=== PATIENT | female | born 1990 | race Caucasian/White ===

== ENCOUNTER 2018-10-02 08:36 | Inpatient (IN) | payer BC ==
[2018-10-02] MEDS ORDERED: Carboprost Tromethamine 250 MCG/1 ML Amp IM PRN (09:01)
[2018-10-02] MEDS ORDERED: Methylergonovine 0.2 MG/1 ML Amp IM PRN (09:01)
[2018-10-02] MEDS ORDERED: Nalbuphine 10 MG/1 ML Vial IVPUSH PRN (09:01)
[2018-10-02] MEDS ORDERED: Sodium Chloride 0.9% 2.5 ML Syringe FLUSH PRN (09:01)
[2018-10-02] MEDS ORDERED: Tranexamic Acid 1,000 MG in Sodium Chloride 0.9% 100 ML IV PRN (09:01)
[2018-10-02] MEDS ORDERED: Water For Irrigation,Sterile 1,000 ML Container IRR PRN (09:01)
[2018-10-02] MEDS ORDERED: Sodium Chloride 0.9% 10 ML Syringe FLUSH PRN (09:01)
[2018-10-02] MEDS ORDERED: Lidocaine 1% 50 ML MDV INJECT PRN (09:01)
[2018-10-02] MEDS ORDERED: Misoprostol 200 MCG Tab PO PRN (09:01)
[2018-10-02] MEDS ORDERED: Ondansetron 4 MG/2 ML SDV IV PRN (09:01)
[2018-10-02] MEDS ORDERED: Butorphanol 1 MG/ML SDV IVPUSH PRN (09:01)
[2018-10-02] MEDS ORDERED: Oxytocin/0.9 % Sodium Chloride 30 UNIT/500 ML BAG IV SCH (09:15)
[2018-10-02] MEDS ORDERED: Lactated Ringers 1,000 ML IV SCH (09:15)
[2018-10-02] MEDS ORDERED: Witch Hazel Medicated Pads 40/Jar TOP PRN (09:58)
[2018-10-02] MEDS ORDERED: Bisacodyl 10 MG Supp RECTAL PRN (09:58)
[2018-10-02] MEDS ORDERED: Lanolin 100% Cream 7 GM Tube TOP PRN (09:58)
[2018-10-02] MEDS ORDERED: Docusate Sodium 100 MG Cap PO PRN (09:58)
[2018-10-02] MEDS ORDERED: Ibuprofen 400 MG Tab PO PRN (09:58)
[2018-10-02] MEDS ORDERED: Acetaminophen 500 MG Tab PO PRN ×2 (09:58)
[2018-10-02] MEDS ORDERED: Benzocaine/Menthol 20%-0.5% Spray 78 GM Cannister TOP PRN (09:58)
[2018-10-02] MEDS ORDERED: oxyCODONE 5 MG Tab PO PRN (09:58)
--- NOTE | 2018-10-02 10:02 | PCM.DEL ---
L & D Note - General Info Date of Service: 10/02/18 - Delivery Note Labor: Spontaneous Delivery Outcome: Livebirth Delivery Method: Spontaneous Vaginal Delivery-Single Delivery Mode: Spontaneous Presentation: Right Occiput Posterior (ROP) Nuchal Cord: None Prep: Other Anesthesia Type: Local Amniotic Fluid Description: Clear Episiotomy Type: None Laceration: 2nd Degree, Labial Suture size: 3-0 Placenta: Intact, Spontaneous Cord: 3 Vessels Estimated Blood Loss: 100 Resuscitation Needed: No Score 1 min: 9 Score 5 min: 9 - General Info Date of Service: 10/02/18 - Patient Data Lab Results Last 24 Hours: Laboratory Results - last 24 hr 10/02/18 Range/Units 09:20 WBC 10.44 (4.0-11.0) K/uL RBC 4.25 L (4.30-5.90) M/uL Hgb 13.3 (12.0-16.0) g/dL Hct 39.1 (36.0-46.0) % MCV 92.0 (80.0-98.0) fL MCH 31.3 (27.0-32.0) pg MCHC 34.0 (31.0-37.0) g/dL RDW Std Deviation 45.6 (28.0-62.0) fl RDW Coeff of Saida 14 (11.0-15.0) % Plt Count 171 (150-400) K/uL MPV 10.70 (7.40-12.00) fL Nucleated RBC % 0.0 /100WBC Nucleated RBCs # 0 K/uL Med Orders - Current: Current Medications Discontinued Medications Butorphanol Tartrate (Stadol) 1 mg IVPUSH Q1H PRN PRN Reason: Pain Carboprost Tromethamine (Hemabate Ds) 250 mcg IM ASDIRECTED PRN PRN Reason: Post Hemorrhage Lactated Ringer's (Ringers, Lactated) 1,000 mls @ 150 mls/hr IV ASDIRECTED [facility] Last Admin: 10/02/18 09:25 Dose: 999 mls/hr Oxytocin/Sodium Chloride (Oxytocin 30 Unit/500 Ml-Ns) 30 unit in 500 mls @ 999 mls/hr IV TITRATE [facility] Last Admin: 10/02/18 09:36 Dose: 999 mls/hr Tranexamic Acid 1,000 mg/ (Sodium Chloride) 110 mls @ 660 mls/hr IV ONETIME PRN PRN Reason: Bleeding Lidocaine HCl (Xylocaine 1%) 50 ml INJECT ONETIME PRN PRN Reason: Laceration repair Last Admin: 10/02/18 09:44 Dose: 50 ml Methylergonovine Maleate (Methergine) 0.2 mg IM ASDIRECTED PRN PRN Reason: Post Hemorrhage Misoprostol (Cytotec) 200 mcg PO ONETIME PRN PRN Reason: Post Hemorrhage Nalbuphine HCl (Nubain) 10 mg IVPUSH Q1H PRN PRN Reason: Pain (severe 7-10) Ondansetron HCl (Zofran) 4 mg IV Q4H PRN PRN Reason: Nausea/Vomiting Sodium Chloride (Saline Flush) 10 ml FLUSH ASDIRECTED PRN PRN Reason: Keep Vein Open Sodium Chloride (Saline Flush) 2.5 ml FLUSH ASDIRECTED PRN PRN Reason: Keep Vein Open Sterile Water (Sterile Water For Irrigation) 1,000 ml IRR ASDIRECTED PRN PRN Reason: delivery Last Admin: 10/02/18 09:44 Dose: 1,000 ml - Problem List & Annotations (1) Vaginal delivery SNOMED Code(s): 362347627 Code(s): O80 - ENCOUNTER FOR FULL-TERM UNCOMPLICATED DELIVERY Status: Acute Current Visit: No - Problem List Review Problem List Initiated/Reviewed/Updated: Yes - My Orders Last 24 Hours: My Active Orders 10/02/18 09:02 Heart Tones [RC] CONTINUOUS Non Stress Test [RC] PER UNIT ROUTINE May Shower [RC] ASDIRECTED Notify Provider [RC] PRN Up ad Valeria [RC] ASDIRECTED Vaginal Exam [RC] PRN Vital Signs [RC] PER UNIT ROUTINE 10/02/18 09:20 TYPE AND SCREEN [BBK] Routine 10/02/18 09:36 BLOOD GAS ARTERIAL UMBILICAL [BG] Routine BLOOD GAS VENOUS UMBILICAL [BG] Routine 10/02/18 09:58 Patient Status [ADT] Routine May Shower [RC] ASDIRECTED Up ad Valeria [RC] ASDIRECTED Vital Signs [RC] PER UNIT ROUTINE Acetaminophen [Tylenol Extra Strength] 1,000 mg PO Q4H PRN Acetaminophen [Tylenol Extra Strength] 500 mg PO Q4H PRN Benzocaine/Menthol [Dermoplast Pain Relief 20%-0.5% [place]] 78 gm TOP ASDIRECTED PRN Bisacodyl [Dulcolax] 10 mg RECTAL ONETIME PRN Docusate Sodium [Colace] 100 mg PO BID PRN Ibuprofen [Motrin] 400 mg PO Q4H PRN Ibuprofen [Motrin] 800 mg PO Q6H PRN Lanolin [Lansinoh HPA] See Dose Instructions TOP ASDIRECTED PRN [place] Joy [Tucks] 1 pad TOP ASDIRECTED PRN oxyCODONE 5 mg PO Q2H PRN Assess Lochia [WOMSER] Per Unit Routine Assess Uterine Involution [WOMSER] Per Unit Routine Breast Pump [WOMSER] Per Unit Routine Perineal Care [OM.PC] Per Unit Routine Peripheral IV Discontinue [OM.PC] Routine Resuscitation Status Routine 10/02/18 Lunch Regular Diet [DIET] 10/03/18 05:11 HEMOGLOBIN/HEMATOCRIT,HH [HEME] Timed
[2018-10-02] MEDS: Ibuprofen 800 MG Tab PO PRN ×2 (11:19→17:16)
--- NOTE | 2018-10-02 12:48 | OR ---
SURGEON: Lilly Pope MD DATE OF PROCEDURE: 10/02/2018 PREOPERATIVE DIAGNOSES: 1. Postdate at 40 weeks and 6 days' gestation. 2. Spontaneous labor. POSTOPERATIVE DIAGNOSES: 1. Postdate at 40 weeks and 6 days' gestation. 2. Spontaneous labor. 3. Delivered. PROCEDURE: Spontaneous vaginal delivery with repair of perineal laceration. ANESTHESIA: Local. ESTIMATED BLOOD LOSS: 100 mL. COMPLICATIONS: None. DISPOSITION: Mother and baby stable in Labor and Delivery Room, bonding. FINDINGS: Female . Weight pending. scores of 9 and 9 at 1 minute and 5 minutes respectively. Grossly normal placenta with 3-vessel cord. Left anterior labial laceration and a second-degree perineal laceration. BRIEF HISTORY: The patient is a 27-year-old, G2, P1-0-0-1, who presented this morning at 40 weeks and 6 days' gestation with a history of contractions since midnight. Denied vaginal bleeding or leakage of fluid. care was uncomplicated. GBS negative. On admission, she was found to be in active labor, 7 cm to 8 cm dilated with tense bulging bag. She was admitted and re-examined about 30 minutes later and was found to be fully dilated. Spontaneous rupture of membranes occurred with clear amniotic fluid. The patient was encouraged to commence pushing and was set up for delivery in modified dorsal lithotomy position. heart tracing was category 2 with variable decelerations. DESCRIPTION OF PROCEDURE: She had a spontaneous vaginal delivery of a live female in right occipital posterior position. No nuchal cord. Clear amniotic fluid at delivery. Anterior and posterior shoulders and the rest of the baby were delivered without difficulty. Baby was vigorous and cried spontaneously at and was delivered onto the maternal abdomen with the nursery nurse in attendance stimulating and drying her. A delayed cord clamping was observed, and cord was subsequently cut by the father of the baby. Cord blood and gas samples were obtained. With the delivery of the , oxytocin infusion was commenced, titration for active management of third stage of labor. Cord blood and gas samples were obtained. Placenta was delivered by controlled cord traction and appeared to be complete and intact. Examination of the perineum revealed a left anterior labial laceration and a midline second-degree laceration. These were infiltrated with 1% lidocaine without epinephrine; and once adequate anesthesia was confirmed, they were repaired with 3-0 Vicryl suture, were hemostatic post repair. Uterine massage was performed. Uterus was found to be well contracted below the umbilicus. The patient tolerated the procedure well. Sponge, instrument, and needle counts were correct at the end of the delivery. ROSA / KWESI /[id number] MTDD
[2018-10-03] MEDS: Ibuprofen 800 MG Tab PO PRN (04:07)
--- NOTE | 2018-10-03 08:51 | PCM.PNPP ---
- General Info Date of Service: 10/03/18 Functional Status: Reports: Pain Controlled, Tolerating Diet, Ambulating, Urinating - Review of Systems General: Denies: Fever, Fatigue HEENT: Denies: Headaches Pulmonary: Denies: Shortness of Breath, Pleuritic Chest Pain Cardiovascular: Denies: Chest Pain, Palpitations, Dyspnea on Exertion Gastrointestinal: Denies: Abdominal Pain Genitourinary: Denies: Dysuria, Incontinence, Retention, Flank Pain - General Info Date of Service: 10/03/18 - Patient Data Vital Signs - Most Recent: Last Vital Signs Temp 36.7 C 10/03/18 07:55 Pulse 67 10/03/18 07:55 Resp 16 10/03/18 07:55 BP 113/66 10/03/18 07:55 Pulse Ox 99 10/03/18 07:55 Weight - Most Recent: 175 lb Lab Results - Last 24 Hours: Laboratory Results - last 24 hr 10/02/18 10/02/18 10/02/18 Range/Units 09:20 09:20 09:39 WBC 10.44 (4.0-11.0) K/uL RBC 4.25 L (4.30-5.90) M/uL Hgb 13.3 (12.0-16.0) g/dL Hct 39.1 (36.0-46.0) % MCV 92.0 (80.0-98.0) fL MCH 31.3 (27.0-32.0) pg MCHC 34.0 (31.0-37.0) g/dL RDW Std Deviation 45.6 (28.0-62.0) fl RDW Coeff of Saida 14 (11.0-15.0) % Plt Count 171 (150-400) K/uL MPV 10.70 (7.40-12.00) fL Nucleated RBC % 0.0 /100WBC Nucleated RBCs # 0 K/uL Cord ABG pH 7.256 (7.18-7.38) Cord ABG Base Excess -5 (-10--2) Cord VBG pH 7.356 (7.25-7.45) Cord VBG Base Excess -4 (-10--2) Blood Type A POSITIVE Antibody Screen NEGATIVE 10/03/18 Range/Units 04:40 WBC (4.0-11.0) K/uL RBC (4.30-5.90) M/uL Hgb 12.0 (12.0-16.0) g/dL Hct 36.3 (36.0-46.0) % MCV (80.0-98.0) fL MCH (27.0-32.0) pg MCHC (31.0-37.0) g/dL RDW Std Deviation (28.0-62.0) fl RDW Coeff of Saida (11.0-15.0) % Plt Count (150-400) K/uL MPV (7.40-12.00) fL Nucleated RBC % /100WBC Nucleated RBCs # K/uL Cord ABG pH (7.18-7.38) Cord ABG Base Excess (-10--2) Cord VBG pH (7.25-7.45) Cord VBG Base Excess (-10--2) Blood Type Antibody Screen Med Orders - Current: Current Medications Acetaminophen (Tylenol Extra Strength) 500 mg PO Q4H PRN PRN Reason: Pain Acetaminophen (Tylenol Extra Strength) 1,000 mg PO Q4H PRN PRN Reason: Pain Last Admin: 10/02/18 20:21 Dose: 1,000 mg Benzocaine/Menthol (Dermoplast Pain Relief 20%-0.5% [place]) 78 gm TOP ASDIRECTED PRN PRN Reason: Perineal Comfort Measure Last Admin: 10/02/18 11:40 Dose: 1 spray Bisacodyl (Dulcolax) 10 mg RECTAL ONETIME PRN PRN Reason: Constipation Docusate Sodium (Colace) 100 mg PO BID PRN PRN Reason: Constipation Last Admin: 10/02/18 10:53 Dose: 100 mg Emollient Ointment (Lansinoh Hpa) 0 gm TOP ASDIRECTED PRN PRN Reason: Sore Nipples Ibuprofen (Motrin) 400 mg PO Q4H PRN PRN Reason: Pain Ibuprofen (Motrin) 800 mg PO Q6H PRN PRN Reason: Pain Last Admin: 10/03/18 04:07 Dose: 800 mg Oxycodone HCl (Oxycodone) 5 mg PO Q2H PRN PRN Reason: Pain Witch Joy (Tucks) 1 pad TOP ASDIRECTED PRN PRN Reason: comfort care Last Admin: 10/02/18 11:41 Dose: 1 pad Discontinued Medications Butorphanol Tartrate (Stadol) 1 mg IVPUSH Q1H PRN PRN Reason: Pain Carboprost Tromethamine (Hemabate Ds) 250 mcg IM ASDIRECTED PRN PRN Reason: Post Hemorrhage Lactated Ringer's (Ringers, Lactated) 1,000 mls @ 150 mls/hr IV ASDIRECTED [facility] Last Admin: 10/02/18 09:25 Dose: 999 mls/hr Oxytocin/Sodium Chloride (Oxytocin 30 Unit/500 Ml-Ns) 30 unit in 500 mls @ 999 mls/hr IV TITRATE [facility] Last Admin: 10/02/18 09:36 Dose: 999 mls/hr Tranexamic Acid 1,000 mg/ (Sodium Chloride) 110 mls @ 660 mls/hr IV ONETIME PRN PRN Reason: Bleeding Lidocaine HCl (Xylocaine 1%) 50 ml INJECT ONETIME PRN PRN Reason: Laceration repair Last Admin: 10/02/18 09:44 Dose: 50 ml Methylergonovine Maleate (Methergine) 0.2 mg IM ASDIRECTED PRN PRN Reason: Post Hemorrhage Misoprostol (Cytotec) 200 mcg PO ONETIME PRN PRN Reason: Post Hemorrhage Nalbuphine HCl (Nubain) 10 mg IVPUSH Q1H PRN PRN Reason: Pain (severe 7-10) Ondansetron HCl (Zofran) 4 mg IV Q4H PRN PRN Reason: Nausea/Vomiting Sodium Chloride (Saline Flush) 10 ml FLUSH ASDIRECTED PRN PRN Reason: Keep Vein Open Sodium Chloride (Saline Flush) 2.5 ml FLUSH ASDIRECTED PRN PRN Reason: Keep Vein Open Sterile Water (Sterile Water For Irrigation) 1,000 ml IRR ASDIRECTED PRN PRN Reason: delivery Last Admin: 10/02/18 09:44 Dose: 1,000 ml - Infant Interaction Disposition, : [place] in Room with Family Feeding: Breastfed ; Nursed Well, Continues to Breastfeed Support Person: - Recovery Exam Fundal Tone: Firm Fundal Level: 1 Fingerbreadths Below Umbilicus Fundal Placement: Midline Lochia Amount: Scant Lochia Color: Rubra/Red Perineum Description: Other (see below) Other Perinuem Description: 2nd degree labial tear Episiotomy/Laceration: Approximated Bladder Status: Voiding - Exam General: Alert, Oriented Lungs: Clear to Auscultation, Normal Respiratory Effort Cardiovascular: Regular Rate, Regular Rhythm GI/Abdominal Exam: Normal Bowel Sounds, Soft Extremities: Non-Tender, Pedal Edema Skin: Warm Psy/Mental Status: Alert, Normal Affect, Normal Mood - Problem List & Annotations (1) Vaginal delivery SNOMED Code(s): 957153666 Code(s): O80 - ENCOUNTER FOR FULL-TERM UNCOMPLICATED DELIVERY Status: Acute Current Visit: No - Problem List Review Problem List Initiated/Reviewed/Updated: Yes - My Orders Last 24 Hours: My Active Orders 10/02/18 09:02 Heart Tones [RC] CONTINUOUS Non Stress Test [RC] PER UNIT ROUTINE May Shower [RC] ASDIRECTED Notify Provider [RC] PRN Up ad Valeria [RC] ASDIRECTED Vaginal Exam [RC] PRN Vital Signs [RC] PER UNIT ROUTINE 10/02/18 09:58 Patient Status [ADT] Routine May Shower [RC] ASDIRECTED Vital Signs [RC] PER UNIT ROUTINE Acetaminophen [Tylenol Extra Strength] 1,000 mg PO Q4H PRN Acetaminophen [Tylenol Extra Strength] 500 mg PO Q4H PRN Benzocaine/Menthol [Dermoplast Pain Relief 20%-0.5% [place]] 78 gm TOP ASDIRECTED PRN Bisacodyl [Dulcolax] 10 mg RECTAL ONETIME PRN Docusate Sodium [Colace] 100 mg PO BID PRN Ibuprofen [Motrin] 400 mg PO Q4H PRN Ibuprofen [Motrin] 800 mg PO Q6H PRN Lanolin [Lansinoh HPA] See Dose Instructions TOP ASDIRECTED PRN Witch Joy [Tucks] 1 pad TOP ASDIRECTED PRN oxyCODONE 5 mg PO Q2H PRN Assess Lochia [WOMSER] Per Unit Routine Assess Uterine Involution [WOMSER] Per Unit Routine Breast Pump [WOMSER] Per Unit Routine Perineal Care [OM.PC] Per Unit Routine Peripheral IV Discontinue [OM.PC] Routine Resuscitation Status Routine 10/02/18 Lunch Regular Diet [DIET] - Assessment Assessment:: PPD#1 s/p , stable and afebrile Clinically stable for discharge - Plan Plan:: Discharge instructions reviewed Nothing in the vagina for 6 weeks Bleeding and infection precautions reviewed Continue PNV depression S/S reviewed, encouraged to call with any concerns Follow up in 6 weeks
[2018-10-03 10:50] VITALS: BP 113/66
== END 2018-10-03 13:00 | disposition home or self-care (01) | DRG 560 ==
LOC: MW.OBCHECK 08:36 → MW.OB 08:37 → OBSVTOIN 09:35 → MW.OBCHECK 09:44
PROVIDERS: ADMIT Obstetrics & Gynecology; ATTEND Obstetrics & Gynecology
PROC: 10E0XZZ Delivery of Products of Conception, External Approach (ICD-10-PCS; principal; 2018-10-02)
PROC: 0UQMXZZ Repair Vulva, External Approach (ICD-10-PCS; principal; 2018-10-02)
PROC: 6A550ZT Pheresis of Cord Blood Stem Cells, Single (ICD-10-PCS; principal; 2018-10-02)
PROC: 0KQM0ZZ Repair Perineum Muscle, Open Approach (ICD-10-PCS; principal; 2018-10-02)
PROC: 10907ZC Drainage of Amniotic Fluid, Therapeutic from Products of Conception, Via Natural or Artificial Opening (ICD-10-PCS; principal; 2018-10-02)
DX: O48.0 Post-term pregnancy (principal); O70.1 Second degree perineal laceration during delivery; Z3A.40 40 weeks gestation of pregnancy; Z37.0 Single live birth
CPT/HCPCS: 36415; 59025; 59409; 82803; 85014; 85018; 85027; 86850; 86900; 86901; A9270-GY; J2001; J2590; J7120